=== PATIENT | male | born 2000 | race Two or more races ===

== ENCOUNTER 2023-04-23 11:25 | Emergency (ER) | payer OTHER ==
[~2023-04-23] VITALS: Ht 180.3 cm; Wt 72.2 kg
[2023-04-23 15:58] VITALS: BP 146/81; PULSE 68; RESP 18; TEMP 97.7; O2SAT 99
[2023-04-23] MEDS ORDERED: POLYSOL28 OP ×2 (15:59→16:03)
== END 2023-04-23 16:10 | disposition home or self-care (01) ==
LOC: ER 11:25
DX: S05.12XA Contusion of eyeball and orbital tissues, left eye, initial encounter (principal); W22.8XXA Striking against or struck by other objects, initial encounter; Y93.89 Activity, other specified; Y92.89 Other specified places as the place of occurrence of the external cause; Y99.8 Other external cause status